=== PATIENT | male | born 1950 | race Caucasian/White ===

== ENCOUNTER → 2025-07-12 09:41 | Outpatient (REF) | payer OTHER, SELFPAY ==
--- NOTE | 2025-07-12 09:46 | ECG_ITS ---
Test Reason : chest pain Blood Pressure : */* mmHG Vent. Rate : 71 BPM Atrial Rate : 71 BPM P-R Int : 194 ms QRS Dur : 90 ms QT Int : 372 ms P-R-T Axes : 56 17 31 degrees QTcB Int : 404 ms Normal sinus rhythm Normal ECG No previous ECGs available Referred By: Mireya Santana Electronically Signed By: JASMIN MELGAR MD
--- OUTSIDE RECORDS SUMMARY | 2025-07-12 11:24 | XMS_ITS | Data Portability ---
Author Organization PETTY Aldrich archie [id number] Address [address] [place] [address] Care Team Providers Care Lockstitch Front Edge Tape Sewer Name Role Phone VIJAYALEXANDRO Primary Care Provider Assessment No assessment recorded. Plan of Treatment Reminders Order Date Submit Date Provider Last Modified By Organization Details Last Modified Time Details Appointments None recorded. Lab None recorded. Referral None recorded. Procedures None recorded. Surgeries None recorded. Imaging None recorded. Medication Orders cephalexin 500 mg capsule [address] [place] [address]/Pharm[id number], [address] [place], [address], 4 09:40:53 Patient TargetsNo targets recorded. Patient InstructionsNo instructions recorded. Reason for Referral None Reported. 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 Medical Equipment None Reported. Allergies No known drug allergies Medications Name Sig Start Date Stop Date Status Note LastModified by Organization Details LastModified Time cephalexin 500 mg capsule Take 2 capsules twice a day by oral route for 10 days. 2023 active Not Available Not Available Not Avai lable finasteride active Not Available Not A vailable Not Available chlorothiazide active Not Available No t Available Not Available lisinopril active Not Available Not Av ailable Not Available lovastatin active Not Available Not Av ailable Not Available Vitals Date Recorded Body height Body mass index (BMI) Body weight Body temperature Respiratory rate Oxygen saturation Oxygen saturation in Arterial blood by Pulse oximetry Heart rate Systolic And Diastolic Provider Name and Address Organization Details Last Updated DateTime 4 170.18 cm 26.6 kg/m2 45867.7 g 97.5 [degF] 16 /min 98 % 98 % 82 /min 136/99 mm[Hg] Nithya Collbran PA - [facility] 4 09:31:34 Social History None recorded. Functional Status Question Answer Note LastModified by Organizat ion Details LastModified Time What is your level of alcohol consumption? Occasional [email or web address] Information not available 02/02/2024 Mental Status None recorded. Family History Nothing Reported. Medical History No medical history recorded. Past Encounters Encounter ID Performer Location Encounter Start Date Encounter Closed Date Diagnosis/Indication Diagnosis SNOMED-CT Code Diagnosis ICD10 Code Diagnosis IMO Codes Diagnosis Note [id number] [address] [place] [address] 02/20/2020 08:31:11 02/20/2020 09:13:24 [id number] [address] [place] [address] 02/12/2020 14:36:26 02/12/2020 16:37:29 [id number] [address]TY TREVIZO [address] [place] [address] 02/02/2024 09:17:29 02/02/2024 09:41:26 Infection of sebaceous cyst 730981076 L72.3 You were seen today for an infected sebaceous cyst.You have been prescribed antibiotic s to treat this.Chapo delcid completed the full course of medication to avoid creating resistance in the bacteria. Follow up with your PCP or dermatolog ist to have it removed in 4-6 weeks if it's still bothersome . SEBACEOUS CYSTA skin cyst is a lump just under the skin. These cysts can form when a hair follicle becomes blocked. They are common in acne and may occur on the face, neck, back, and genitals. But they can form anywhere on the body. These cysts aren't cancer, and they don't lead to cancer. They tend not to hurt, but they can sometimes become swollen and painful. They also may break open (rupture) and cause scarring. These cysts may not cause problems. They may not need treatment. If a cyst is swollen and hurts, the doctor may inject it with a medicine or treat it with antibiotic s if it's infected. But sometimes a painful or infected cyst will need to be removed or opened. In those cases, the doctor will use numbing medicine and then will cut into the cyst to drain it or remove it. Follow-up care is a albright part of your treatment and safety. Be sure to make and go to all appointmen ts, and call your doctor or nurse advice line if you are having problems. It's also a good idea to know your test results and keep a list of the medicines you take. How can you care for yourself at home? Do not squeeze the cyst or poke it with a needle to open it. This can cause swelling, redness, and infection. Always have a doctor look at any new lumps you get to make sure that they are not serious. If you had stitches, you may get other instructio ns. You will have to come back to have the stitches removed. When should you call for help?Watch closely for changes in your health, and be sure to contact your doctor or nurse advice line if: - You have a fever, redness, or swelling after you get a shot of medicine in the cyst.- You see or feel a new lump on your skin. Health Concerns Section Related Observation LastModified by Organization Baylee lazo LastModified Time None Recorded Concern Status LastModified by Organization Details LastModified Time None Recorded Advance Directives Directive None Recorded Payers Insurance Date Sequence Insurance Name Policy Number Policy [place] Covered Member ID [place] Member ID Guarantor Name 02/15/2024 1 [place] Rudy Han [id number] Rudy Han 02/15/2024 2 [facility] [id number] Rudy Han [id number] Rudy Han 02/02/2024 1 [place] [facility] Rudy Han [id number] Rudy Han Notes Date Note Type Note Provider Name and Address Organization Details Recorded Time 02/02/2024 text/html 73 y/o male here with large, red, painful lump to the R upper back for the past few days PETTY Reed [address] [place], [address], [place] - [facility] 02/02/2024 09:42:32
--- OUTSIDE RECORDS SUMMARY | 2025-07-12 11:24 | XMS_ITS | Clinical Summary ---
Author Organization [employer] Address [address] [place] [address] Care Team Providers Care Strategy Intern Name Role Phone Aden Nguyen MD Primary Care Provider + [phone] Allergies No known active allergies Medications lisinopril 20 MG tablet Active finasteride (Proscar) 5 MG tablet Take 5 mg by mouth Once per day. Active chlorthalidone (Hygroton) 25 MG tablet Take 25 mg by mouth Once per day. Active tamsulosin (Flomax) 0.4 MG 24 hr capsule Take 0.4 mg by mouth Once per day. Active tiotropium (Spiriva HandiHaler) 18 MCG inhalation capsuleIndicati ons:Acute cough,Bronchiti s Place 1 capsule (18 mcg) into inhaler and inhale in the morning. 30 capsule 11 5 11/24/19 26 Active Additional Information Patient not taking.Reported on 06/28/2025 albuterol 108 (90 Base) MCG/ACT inhalerIndicati ons:Acute cough,Bronchiti s Inhale 2 puffs every 6 (six) hours if needed for wheezing. 18 g 11 5 11/24/19 26 Active Additional Information Patient not taking.Reported on 06/28/2025 lovastatin (Mevacor) 20 MG tablet Take 1 tablet (20 mg) by mouth at bedtime. 90 tablet 3 5 Active cetirizine (ZyrTEC) 10 MG tablet Take twice a day for 7 days then take once a day as needed 30 tablet 5 Active predniSONE (Deltasone) 20 MG tablet Take 1 tablet (20 mg) by mouth Once per day for 5 days. 5 tablet 5 07/03/20 25 Encounters Date Type Department Care Team Description 06/28/2025 10:00 AM EDT Office Visit [address] [address] Shannon Paul NP Bee sting reaction, accidental or unintentional, initial encounter (Primary Dx); Negative depression screening [Z13.31] 06/28/[address] [address] Aden Nguyen MD 05/24/[address] [address] Aden Nguyen MD from Last 3 Months Immunizations Immunization Administration Dates Next Due Influenza, High Dose Seasona l, Preservative Free 08/13/2016,07/30/2015 Influenza, Unspecified 07/11/2021 Moderna Covid-19 Vaccine 12+ 01/09/2022, 12/27/2021,08/18/2021,07/29,12/21/2020,11/23/2020 Pneumococcal Conjugate PCV 13 07/20/2017 Pneumococcal Polysaccharide PPSV23 06/13/2019 TD (adult), 2 Lf tetanus tox oid, preservative free, adsorbed 07/11/2021,03/07/2010 Tdap 01/04/2025 Zoster, Recombinant 08/06/2022,06/11/2020 Social History Tobacco Use Types Packs/Day Years Used Date Smoking Tobacco: Never Passive Smoke Exposure: Never Smokeless Tobacco: Never Tobacco Cessation:Counseling Given: Not Answered Alcohol Use Standard Drinks/Week Comments Not Currently 0 (1 standard drink = 0.6 oz pur e alcohol) Alcohol Answer Date Recorded How often do you have a drink containing alcohol ? 3 06/28/2025 How many drinks containing a lcohol do you have on a typical day when you are drinking? 0 06/28/2025 How often do you have six or more drinks on one occasion? 0 06/28/2025 Depression Answer Date Recorded Patient Health Questionnaire-9 Score 0 03/07/2024 Patient Health Questionnaire-9 Score 0 03/07/2024 Last PHQ-9: Questionnaire Data Not on file 0 03/07/2024 Housing Stability Answer Date Recorded What is your housing situation today? I have kalyn mari 03/07/[address] you li ve. Do you have problems with any of the following? None of the above 03/07/2024 Food Insecurity Answer Date Recorded Within the past 12 months, y ou worried that your food would run out before you got money to buy more: Never True 03/07/2024 Within the past 12 months,th e food you bought just didn't last and you didn't have enough money to get more: Never True Transportation Answer Date Recorded In the past 12 months, has l ack of transportation kept you from medical appts, meetings, work or from getting things needed for daily living? No 03/07/2024 Intimate Partner Violence Answer Date R ecorded Within the last year, have y ou been afraid of your partner or ex-partner? 2 03/07/2024 Within the last year, have y ou been humiliated or emotionally abused in other ways by your partner or ex-partner? 2 Within the last year, have y ou been kicked, hit, slapped, or otherwise physically hurt by your partner or ex-partner? 2 03/07/2024 Within the last year, have y ou been raped or forced to have any kind of sexual activity by your partner or ex-partner? 2 03/07/2024 Utilities Answer Date Recorded In the past 12 months, has t he electric, gas, oil or water company threatened to shut off services in your home? No 03/07/2024 Depression Answer Date Recorded Patient Health Questionnaire-2 Score 0 06/28/2025 Internet Access Answer Date Recorded Internet Access Q1 Yes 07/25/2024 Internet Access Q2 Not on file 07/25/2024 Sex and Gender Information Value Date Recorded Sex Assigned at Male 03/03/2023 1:13 PM EDT Legal Sex Male 6:20 PM EDT Gender Identity Male 07/18/2022 6:20 PM EDT Sexual Orientation Straight 07/18/2022 6: 20 PM EDT Last Filed Vital Signs Vital Sign Reading Time Taken Comments Blood Pressure 118/78 06/28/2025 9:55 AM EDT Pulse 85 06/28/2025 9:55 AM EDT Temperature 36 C (96.8 F) 01/04/2025 7:40 AM EDT Respiratory Rate - - Oxygen Saturation 97% 06/28/2025 9:55 AM EDT Inhaled Oxygen Concentration - - Weight 82.7 kg (182 lb 6.4 oz) 06/28/2025 9:55 A M EDT Height 167 cm (5' 5.75 ) 07/28/2022 7:33 AM EST Body Mass Index 29.66 07/28/2022 7:33 AM EST Plan of Treatment Upcoming Encounters Date Type Department Care Team (Late st Contact Info) Description 08/14/2025 8:20 AM EST Office Visit [facility] [address] [place] [phone] Aden Nguyen MD [address] [place] [id number] Health Maintenance Due Date Last Done Comments Hepatitis C Screening 02/20/1968 Tobacco Screening 11/23/2025 11/23/2024 Alcohol/Substance Use Screening 06/28/2026 06/28/2025 Depression Screening 06/28/2026 06/28/2025, 03/07/20 24 SDOH Screening 06/28/2026 06/28/2025 Lipid Panel 04/07/2027 04/07/2022, 09/26/2019 DTaP/Tdap/Td Vaccines (2 - Td or Tdap) 01/04/2035 01/04/2025, 07/11/2021, 07/11/2021, Additional history exists Pneumococcal Vaccine: 50+ Years Completed 06/13/2019, 07/20/2017, 06/28/2014 Colonoscopy Discontinued 03/13/2021, 08/11/2017, 03/16/2015, Additional history exists Colorectal Cancer Screening Discontinued Zoster Vaccines Completed 10/17/2022, 07/22, 07/11/2020, Additional history exists RSV Patients and Patients Aged 60 years or older Completed 06/24/2023 COVID-19 Vaccine Completed 06/06/2025, 07/2024, 06/26/2023, Additional history exists Influenza Vaccine Completed 06/21/2025, , 06/01/2024, Additional history exists CT Colonography Discontinued FIT DNA/Cologuard Discontinued FIT Discontinued FOBT Discontinued HIB Vaccines Aged Out No longer eligi ble based on patient's age to complete this topic HPV Vaccines Aged Out No longer eligi ble based on patient's age to complete this topic Hepatitis A Vaccines Aged Out No long er eligible based on patient's age to complete this topic Hepatitis B Vaccines Aged Out No long er eligible based on patient's age to complete this topic IPV Vaccines Aged Out No longer eligi ble based on patient's age to complete this topic Meningococcal B Vaccine Aged Out No l onger eligible based on patient's age to complete this topic Meningococcal Vaccine Aged Out No beverly sharath eligible based on patient's age to complete this topic RSV under 20 months Aged Out No longe r eligible based on patient's age to complete this topic Rotavirus Vaccines Aged Out No longer eligible based on patient's age to complete this topic Sigmoidoscopy Discontinued Procedures Procedure Name Priority Date/Time Associated Diagnosis Comments LIPID PANEL WITH REFLEX TO DIRECT LDL Routine 04/07/2022 1:28 PM EDT COLONOSCOPY Routine 03/13/2021 12:00 AM EDT from Last 3 Months or Most Recently Relevant to Health Maintenance Results * (ABNORMAL) LIPID PANEL W REFLEX TO DLDL (04/07/2022 1:28 PM EDT) Cholesterol, Total 166 (<200) MG/DL [facility] Triglycerides 181(H) (<150) MG/DL [facility] HDL Cholesterol 56 (>39) MG/DL [facility] LDL Cholesterol Calculated 74 (0-130) MG/DL [facility] Non-HDL Cholesterol 110 (<160) MG/DL [facility] Chol/HDLC Ratio 3.0 (<5.0) [facility] 04/07/2022 1:28 PM EDT us Historical Provider LAB BLOOD ORDERABLES Rona friedman Result [facility] [address] * Colonoscopy (03/13/2021 12:00 AM EDT) Anatomical Region Laterality Modality Endoscopy 03/13/2021 Narrative 03/13/2021 12:00 AM EDT Refer to the Notes tab for result details [facility] Procedure: Colonoscopy Procedure Note ProviderReji MD - 12/13/2022 Refer to the Notes tab for result details [facility] Procedure: Colonoscopy Historical Provider ENDOSCOPY PROCEDURE ORDER NOHELIA Final Result from Last 3 Months or Most Recently Relevant to Health Maintenance Insurance [address] [place] [address] MEDICARE [facility] Care Teams Strategy Intern Relationship Specialty Start Date End Date Aden Nguyen MD [address] [place] [id number] PCP - General Internal Medicine 03/18/24
== END ==
LOC: HO.CARD 09:41
PROVIDERS: PCP Internal Medicine; Visit Provider Nurse Practitioner Gerontology
DX: R07.9 Chest pain, unspecified (principal)
CPT/HCPCS: 93005

== ENCOUNTER → 2025-07-12 09:46 | Outpatient (BNV) | payer OTHER, SELFPAY | PROVIDERS: PCP Internal Medicine; Visit Provider Internal Medicine Cardiovascular Disease | DX: R07.9 Chest pain, unspecified (principal) | CPT/HCPCS: 93010 ==